=== PATIENT | male | born 1970 | race Caucasian/White ===

== ENCOUNTER 2017-03-01 09:50 | Emergency (ER) | payer OTHER ==
[~2017-03-01] VITALS: Ht 167.6 cm; Wt 71.0 kg
[2017-03-01] MEDS ORDERED: ACETAMINOPHEN/HYDROcodone 325 MG/5 MG TAB PO ONE (10:00)
[2017-03-01 10:02] VITALS: BP 179/106; PULSE 87; RESP 16; TEMP 98.9; O2SAT 96
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
[2017-03-01] MEDS ORDERED: NAPR500 PO (10:56)
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
[2017-03-01 11:32] VITALS: BP 174/97
== END 2017-03-01 11:33 | disposition home or self-care (01) ==
LOC: NEPD 09:50
DX: M54.2 Cervicalgia (principal); M54.89 Other dorsalgia; V89.2XXA Person injured in unspecified motor-vehicle accident, traffic, initial encounter; Y92.410 Unspecified street and highway as the place of occurrence of the external cause
CPT/HCPCS: 72072; 72110; 72125